=== PATIENT | male | born 1990 | race Caucasian/White ===

== ENCOUNTER 2017-06-01 18:38 | Emergency (ER) | payer BC ==
[~2017-06-01] VITALS: Ht 182.9 cm; Wt 59.0 kg
[2017-06-01 18:50] VITALS: BP 146/94; Ht 182.9 cm; Wt 59.0 kg
== END 2017-06-01 21:41 | disposition left against medical advice (07) ==
LOC: ED 18:38
DX: Z53.21 Procedure and treatment not carried out due to patient leaving prior to being seen by health care provider (principal)